=== PATIENT | male | born 1930 | race Caucasian/White ===

== ENCOUNTER 2016-11-09 02:21 | Observation (INO) | payer OTHER, MEDICARE ==
[~2016-11-09] VITALS: Ht 172.7 cm; Wt 76.4 kg
[2016-11-09] VITALS (10 sets, daily range): BP systolic 140–186; BP diastolic 66–87; PULSE 77–110; RESP 20; TEMP 98–98.4; O2SAT 98–100
[~2016-11-09 02:21] MED LIST: AMLO10 PO; ASPI81CH CHEW; CENTCHW4 CHEW; OMEGCAP PO; PRAV40TA2 PO
[2016-11-09] MEDS ORDERED: SODIUM CHLORIDE 0.9% FLUSH 10 ML FLUSH IVF PRN (02:30)
[2016-11-09] MEDS ORDERED: WARF-23 PO (02:32)
[2016-11-09] MEDS ORDERED: NIAC100T2 PO (02:32)
[2016-11-09 02:51] LABS: AUTOMATED NEUTROPHIL # 3.6 TH/MM3 (1.8-7.7); BASOPHIL # 0.1 TH/MM3 (0-0.2); EOSINOPHIL # 0.2 TH/MM3 (0-0.4); EOSINOPHIL % 2.8 % (0.0-4.0); HEMATOCRIT 39.5 % (39.0-51.0); HEMO FLAGS DIFF FINAL; LYMPH % 37.4 % (9.0-44.0); LYMPHOCYTE # 2.8 TH/MM3 (1.0-4.8); MEAN CORPUSCULAR HEMOGLOBIN 29.1 PG (27.0-34.0); MEAN CORPUSCULAR HGB CONC 33.4 % (32.0-36.0); MONO % 10.3 % (0.0-8.0); NEUT % 48.5 % (16.0-70.0); PLATELET COUNT 197 TH/MM3 (150-450); RED BLOOD COUNT 4.54 MIL/MM3 (4.50-5.90); RED CELL DISTRIBUTION WIDTH 14.2 % (11.6-17.2); WHITE BLOOD COUNT 7.4 TH/MM3 (4.0-11.0)
--- NOTE | 2016-11-09 03:00 | RADRPT ---
EXAM DATE/TIME: 11/09/2016 02:28 [place] COMPARISON: CHEST SINGLE AP, March 12, 2016, 9:45. INDICATIONS : Chest pain. MEDICAL HISTORY : Hypertension. Congestive heart failure. Coronary artery disease. SURGICAL HISTORY : CABG. ENCOUNTER: Initial ACUITY: 1 day PAIN SCORE: 4/10 LOCATION: Bilateral chest FINDINGS: No infiltrate, effusion or pneumothorax demonstrated. Heart size stable, within normal limits. Odalis t has had previous median sternotomy. CONCLUSION: No acute cardiopulmonary disease demonstrated. Wang Aleman MD on November 09, 2016 at 2:58 Board Certified Radiologist. This report was verified electronically.
[2016-11-09 03:18] LABS: APTT (PATIENT) 36.2 SEC (24.3-30.1); INTERNATIONAL NORMALIZED RATIO 2.1 RATIO; PROTHROMBIN TIME - PATIENT 23.4 SEC (9.8-11.6)
[2016-11-09 03:25] LABS: CREATINE KINASE 112 U/L (39-308)
[2016-11-09 03:27] LABS: BLOOD UREA NITROGEN 20 MG/DL (7-18); CHLORIDE 104 MEQ/L (98-107); GLOMERULAR FILTRATION RATE 62 ML/MIN (>89); POTASSIUM 3.8 MEQ/L (3.5-5.1); SODIUM (NA) 139 MEQ/L (136-145)
[2016-11-09 03:37] LABS: CKMB 1.4 NG/ML (0.5-3.6)
--- NOTE | 2016-11-09 03:40 | PD ---
HPI Chief Complaint: Chest Pain Time Seen by Provider: 02:30 Travel History International Travel<30 days: No Contact w/Intl Traveler<30days: No Traveled to known affect area: No History of Present Illness HPI 85-year-old male came to the emergency room with history of left-sided chest pain that started at midnight when he woke up to go to the restroom. Patient says he waited for a little bit to make sure that the pain goes away but when it didn't he thought of calling 911. The pain feels like a soreness on the left side of his rib cage. It does not radiate anywhere. Patient does have history of coronary artery disease and had a double vessel bypass about 9 years ago. Not recall his last stress test. His shoe planner is Dr. Kapoor. Vital signs were stable otherwise. He has history of atrial fibrillation and is on Coumadin. PFSH Past Medical History Narrative Medical List of his past medical, surgical, social and family history reviewed from the nursing note. Hx Anticoagulant Therapy: Yes (81MG ASA BID) Arthritis: No Asthma: No Blood Disorders: No Heart Rhythm Problems: No Cancer: No Cardiovascular Problems: Yes (CABG, VALVE REPLACEMENT, 2 BY PASS, CHF) High Cholesterol: Yes Chemotherapy: No Chest Pain: No Congestive Heart Failure: Yes COPD: No Cerebrovascular Accident: No Coronary Artery Disease: Yes Diabetes: No Diminished Hearing: Yes (ADRYAN HEARING AIDS) Endocrine: No GERD: No Genitourinary: No Headaches: Yes Hepatitis: No Hiatal Hernia: No Hypertension: Yes Immune Disorder: No Kidney Stones: No Neurologic: No Psychiatric: No Reproductive: No Respiratory: No Immunizations Current: Yes Migraines: No Myocardial Infarction: No Radiation Therapy: No Renal Failure: No Seizures: No Sleep Apnea: No Thyroid Disease: No Ulcer: No Tetanus Vaccination: < 5 Years Influenza Vaccination: Yes Past Surgical History Abdominal Surgery: No Appendectomy: No Cardiac Surgery: No Cholecystectomy: No Coronary Artery Bypass Graft: Yes (2 VESSEL BYPASS & VALVE REPLACEMENT 2008) Ear Surgery: No Endocrine Surgery: No Eye Surgery: Yes Genitourinary Surgery: No Gynecologic Surgery: No Oral Surgery: No Thoracic Surgery: No Other Surgery: Yes (Cataracts, CABG, 2009, ) Social History Alcohol Use: Yes (OCC) Tobacco Use: No Substance Use: No Allergies-Medications (Allergen,Severity, Reaction): Coded Allergies: No Known Allergies (Verified , 02/14/16) Comments No known drug allergies. Reported Meds & Prescriptions Reported Meds & Active Scripts Active Norvasc (Amlodipine Besylate) 10 Mg Tab 10 Mg PO DAILY 30 Days Reported Niacin 100 Mg Tab Mg PO BID Warfarin 5 Mg Tab 5 Mg PO DAILY Pravastatin 40 Mg Tab 40 Mg PO DAILY [place]-3 Fish Oil/Vitamin (Fish Oil-Cholecalciferol) 1,000-1,000 Mg Cap 340 Cap PO DAILY Centrum (Multiple Vitamins W/ Minerals) 1 Chew 1 Tab CHEW DAILY Aspirin 81 Mg Chew 81 Mg CHEW DAILY Narrative Medication List of his home medications reviewed from the nursing note. Review of Systems Except as stated in HPI: all other systems reviewed are Neg Physical Exam Narrative GENERAL: Awake, alert, elderly, anxious, moderate distress SKIN: Focused skin assessment warm/dry. HEAD: Atraumatic. Normocephalic. EYES: Pupils equal and round. No scleral icterus. No injection or drainage. ENT: No nasal bleeding or discharge. Mucous membranes pink and moist. NECK: Trachea midline. No JVD. CARDIOVASCULAR: Irregularly irregular heart rate. No murmur appreciated. RESPIRATORY: No accessory muscle use. Clear to auscultation. Breath sounds equal bilaterally. GASTROINTESTINAL: Abdomen soft, non-tender, nondistended. Hepatic and splenic margins not palpable. MUSCULOSKELETAL: No obvious deformities. No clubbing. No cyanosis. No edema. NEUROLOGICAL: Awake and alert. No obvious cranial nerve deficits. Motor grossly within normal limits. Normal speech. PSYCHIATRIC: Appropriate mood and affect; insight and judgment normal. Data Data Last Documented VS Vital Signs Date Time Temp Pulse Resp B/P Pulse Ox O2 Delivery O2 Flow Rate FiO2 11/09/16 02:38 110 20 148/71 99 Nasal Cannula 2 143/72 11/09/16 02:24 98.4 Orders Electrocardiogram (11/09/16 02:30) Basic Metabolic Panel (Bmp) (11/09/16 02:30) Ckmb (Isoenzyme) Profile (11/09/16 02:30) Complete Blood Count With Diff (11/09/16 02:30) Magnesium (Mg) (11/09/16 02:30) Prothrombin Time / Inr (Pt) (11/09/16 02:30) Act Partial Throm Time (Ptt) (11/09/16 02:30) Troponin I (11/09/16 02:30) Chest, Single Ap (11/09/16 02:30) Ecg Monitoring (11/09/16 02:30) Bilateral Bp Monitoring (11/09/16 02:30) Iv Access Insert/Monitor (11/09/16 02:30) Oximetry (11/09/16 02:30) Oxygen Administration (11/09/16 02:30) Sodium Chloride 0.9% Flush (Ns Flush) (11/09/16 02:30) CKMB (11/09/16 02:38) CKMB% (11/09/16 02:38) Admit Order (Ed Use Only) (11/09/16 03:35) Place In Observation (11/09/16 03:35) Activity Bed Rest With Brp (11/09/16 03:35) Vital Signs (Adult) Q4H (11/09/16 03:35) Cardiac Rhythm .As Directed (11/09/16 03:35) Notify Dr: Other .PRN (11/09/16 03:35) Notify DrJohanny Parameters (11/09/16 03:35) Resp Oxygen Nasal Cannula (11/09/16 ) Diet Heart Healthy (11/09/16 Breakfast) Ckmb (Isoenzyme) Profile (11/09/16 03:35) Ckmb (Isoenzyme) Profile (11/09/16 06:35) Troponin I (11/09/16 03:35) Troponin I (11/09/16 06:35) Electrocardiogram (11/09/16 06:35) ^ Obtain (11/09/16 03:35) Sodium Chloride 0.9% Flush (Ns Flush) (11/09/16 03:45) Sodium Chloride 0.9% Flush (Ns Flush) (11/09/16 09:00) Acetaminophen (Tylenol) (11/09/16 03:45) Ondansetron Inj (Zofran Inj) (11/09/16 03:45) Nitroglycerin Sl (Nitrostat Sl) (11/09/16 03:45) Packaging Assembler / Telemetry LIN.Q8H (11/09/16 03:35) CKMB (11/09/16 05:48) CKMB% (11/09/16 05:48) CKMB (11/09/16 08:35) CKMB% (11/09/16 08:35) Labs Laboratory Tests Test 11/09/16 02:38 White Blood Count 7.4 TH/MM3 Red Blood Count 4.54 MIL/MM3 Hemoglobin 13.2 GM/DL Hematocrit 39.5 % Mean Corpuscular Volume 87.0 FL Mean Corpuscular Hemoglobin 29.1 PG Mean Corpuscular Hemoglobin 33.4 % Concent Red Cell Distribution Width 14.2 % Platelet Count 197 TH/MM3 Mean Platelet Volume 8.7 FL Neutrophils (%) (Auto) 48.5 % Lymphocytes (%) (Auto) 37.4 % Monocytes (%) (Auto) 10.3 % Eosinophils (%) (Auto) 2.8 % Basophils (%) (Auto) 1.0 % Neutrophils # (Auto) 3.6 TH/MM3 Lymphocytes # (Auto) 2.8 TH/MM3 Monocytes # (Auto) 0.8 TH/MM3 Eosinophils # (Auto) 0.2 TH/MM3 Basophils # (Auto) 0.1 TH/MM3 CBC Comment DIFF FINAL Differential Comment Prothrombin Time 23.4 SEC Prothromb Time International 2.1 RATIO Ratio Activated Partial 36.2 SEC Thromboplast Time Sodium Level 139 MEQ/L Potassium Level 3.8 MEQ/L Chloride Level 104 MEQ/L Carbon Dioxide Level 26.4 MEQ/L Anion Gap 9 MEQ/L Blood Urea Nitrogen 20 MG/DL Creatinine 1.12 MG/DL Estimat Glomerular Filtration 62 ML/MIN Rate Random Glucose 105 MG/DL Calcium Level 9.1 MG/DL Magnesium Level 2.0 MG/DL Total Creatine Kinase 112 U/L Creatine Kinase MB 1.4 NG/ML Troponin I LESS THAN 0.02 NG/ML [facility] Medical Decision Making Medical Screen Exam Complete: Yes Emergency Medical Condition: Yes Medical Record Reviewed: Yes Interpretation(s) Twelve-lead EKG was reviewed by me. Atrial fibrillation, PVCs, normal axis. Heart rate of 109 beats per minute. Differential Diagnosis ACS, non-STEMI, chest wall pain Narrative Course 3:39 AM the test results of back. Coumadin has a therapeutic INR. Patient was given 4 mg of morphine IV along with 4 mg of Zofran. Given his significant past medical history of coronary artery disease and would like to keep him in the chest pain center to be ruled out. Patient understands this and is agreeable. Procedures EKG Prior to Arrival: Yes Diagnosis Primary Impression: Chest pain Qualified Code: R07.9 - Chest pain, unspecified type Additional Impression: Atrial fibrillation Qualified Code: I48.2 - Chronic atrial fibrillation Admitting Information Admitting Physician Requests: Doris Mock MD Nov 09, 2016 03:40
[2016-11-09 03:41] LABS: ANION GAP 9 MEQ/L (5-15); BICARBONATE 26.4 MEQ/L (21.0-32.0)
[2016-11-09] MEDS ORDERED: NITROGLYCERIN 0.4 MG SL 25 TABS/BTL SL PRN (03:45)
[2016-11-09] MEDS ORDERED: ACETAMINOPHEN 500 MG CPLT PO PRN (03:45)
[2016-11-09] MEDS ORDERED: ONDANSETRON HCL 4 MG/2 ML VIAL IV PRN (03:45)
[2016-11-09] MEDS ORDERED: SODIUM CHLORIDE 0.9% FLUSH 10 ML FLUSH IV FLUSH PRN (03:45)
[2016-11-09] MEDS ORDERED: DILTIAZEM HCL 90 MG TAB PO ONE (04:00)
[2016-11-09 06:50] LABS: CREATINE KINASE 117 U/L (39-308)
[2016-11-09 07:02] LABS: CKMB 1.7 NG/ML (0.5-3.6)
[2016-11-09] MEDS ORDERED: ASPIRIN 81 MG CHEW TAB CHEW SCH (09:00)
[2016-11-09] MEDS ORDERED: PRAVASTATIN SOD 40 MG TAB PO SCH (09:00)
[2016-11-09] MEDS ORDERED: SODIUM CHLORIDE 0.9% FLUSH 10 ML FLUSH IV FLUSH SCH (09:00)
[2016-11-09 09:30] LABS: CREATINE KINASE 110 U/L (39-308)
--- NOTE | 2016-11-09 09:40 | HHI.DCPOC ---
Discharge Care Plan Diagnosis: (1) Chest pain, atypical (2) CAD (coronary artery disease) (3) Hx of CABG (4) Atrial fibrillation (5) Hypertension (6) Hyperlipidemia Goals to Promote Your Health * To prevent worsening of your condition and complications * To maintain your health at the optimal level Directions to Meet Your Goals Take your medications as prescribed Follow your dietary instruction Follow activity as directed Keep your appointments as scheduled Take your immunizations and boosters as scheduled If your symptoms worsen call your PCP, if no PCP go to Urgent Care Center or Emergency Room Smoking is Dangerous to Your Health. Avoid second hand smoke Call the 24-hour hour crisis hotline for domestic abuse at Josafat De La Paz Nov 09, 2016 09:40
[2016-11-09 09:43] LABS: CKMB 1.5 NG/ML (0.5-3.6)
--- NOTE | 2016-11-09 09:45 | PD.CARD.PN ---
Subjective Subjective Remarks CARDIOLOGY ATTENDING NOTE S: 85 yo male with hx of CABG x2 by Dr. Arango 9 years ago. Has done well since and remains active. Developed AF now followed by Dr. Kapoor. Getting out of bed to urinate last night he developed sudden severe CP over his left lower ribs. Non radiating, no SOB, diaphoresis or other associated sx. Pain continues to present and very tender to touch. O: HEENT hearing diminished, no JVD or bruits Chest decreased BS but no RWR Exquisitely tender to palpation LL CV Irregular but with no GRM Ext No CCE EKG AF LAB Has Ruled out A: Non cardiac chest wall pain Known CAD AF P: Has RO for ACS but has known CAD which is appropriately followed by Dr. Kapoor. Disch to FU as OP with Dr. Kapoor Objective Vital Signs / I&O Vital Signs Date Time Temp Pulse Resp B/P Pulse Ox O2 Delivery O2 Flow Rate FiO2 11/09/16 09:02 81 11/09/16 08:32 98.0 77 20 140/75 98 11/09/16 07:24 72 16 146/80 99 Nasal Cannula 2 11/09/16 06:17 99 2.00 11/09/16 05:49 80 11/09/16 04:55 92 20 159/66 98 Nasal Cannula 2 11/09/16 04:51 103 Nasal Cannula 2 11/09/16 03:42 104 20 150/87 99 Nasal Cannula 2 11/09/16 02:38 110 20 148/71 99 Nasal Cannula 2 143/72 11/09/16 02:34 99 Nasal Cannula 2 11/09/16 02:34 100 Nasal Cannula 2 11/09/16 02:24 98.4 106 20 186/78 99 Laboratory Laboratory Tests Test 11/09/16 11/09/16 11/09/16 02:38 05:48 08:35 White Blood Count 7.4 TH/MM3 Red Blood Count 4.54 MIL/MM3 Hemoglobin 13.2 GM/DL Hematocrit 39.5 % Mean Corpuscular Volume 87.0 FL Mean Corpuscular Hemoglobin 29.1 PG Mean Corpuscular Hemoglobin 33.4 % Concent Red Cell Distribution Width 14.2 % Platelet Count 197 TH/MM3 Mean Platelet Volume 8.7 FL Neutrophils (%) (Auto) 48.5 % Lymphocytes (%) (Auto) 37.4 % Monocytes (%) (Auto) 10.3 % Eosinophils (%) (Auto) 2.8 % Basophils (%) (Auto) 1.0 % Neutrophils # (Auto) 3.6 TH/MM3 Lymphocytes # (Auto) 2.8 TH/MM3 Monocytes # (Auto) 0.8 TH/MM3 Eosinophils # (Auto) 0.2 TH/MM3 Basophils # (Auto) 0.1 TH/MM3 CBC Comment DIFF FINAL Differential Comment Prothrombin Time 23.4 SEC Prothromb Time International 2.1 RATIO Ratio Activated Partial 36.2 SEC Thromboplast Time Sodium Level 139 MEQ/L Potassium Level 3.8 MEQ/L Chloride Level 104 MEQ/L Carbon Dioxide Level 26.4 MEQ/L Anion Gap 9 MEQ/L Blood Urea Nitrogen 20 MG/DL Creatinine 1.12 MG/DL Estimat Glomerular Filtration 62 ML/MIN Rate Random Glucose 105 MG/DL Calcium Level 9.1 MG/DL Magnesium Level 2.0 MG/DL Total Creatine Kinase 112 U/L 117 U/L 110 U/L Creatine Kinase MB 1.4 NG/ML 1.7 NG/ML Troponin I LESS THAN 0.02 LESS THAN 0.02 LESS THAN 0.02 NG/ML NG/ML NG/ML Gabino Cheung MD Nov 09, 2016 09:45
--- NOTE | 2016-11-09 10:34 | HHI.HP ---
HPI Primary Care Physician [facility] Chief Complaint Chest pain History of Present Illness This is an 85-year-old male with history of CAD with a 2 vessel bypass and mitral valve replacement in 2008 that presents to the ED complaining of a chest discomfort. Patient states he woke up about midnight having use the restroom. When going back to bed and lying down he developed a left-sided sharp pain in the lower left rib area. He states it lasted about 10 or 15 minutes which concerned him. At that point he called 911. When he would stand up when they arrived he noted the discomfort had gone however it is still sore when he pushes on the area. He states he is very active. He walks at least on average 1 mile a day. He also golfs 18 holes on Sundays. He continues to follow-up with his zoology professor. He sees Dr. Kapoor. Last evaluation was October 29. He was recently told by his zoology professor that he is in atrial fibrillation and he was placed on Coumadin. He states that his INR levels have been normal. Denies recent illnesses. Denies fevers or chills. He had no associated shortness breath, nausea, or diaphoresis with his discomfort. Review of Systems General: Patient denies fevers, chills recent, and recent travel HEENT: Patient denies headache, sore throat, difficulty swallowing. Cardiovascular: Has the chest discomfort as mentioned above. Denies sensation of heart beating rapidly or irregularly. No syncope. Denies diaphoresis. Respiratory: Denies shortness of breath or inspirational chest discomfort. Denies coughing wheezing or hemoptysis. GI: Patient denies nausea, vomiting, diarrhea, abdominal pain, bloody stools. Musculoskeletal: Patient denies joint pain or edema. Denies calf pain or edema. Neurovascular: Patient denies numbness, tingling, weakness in extremities. Denies headache. Endocrine: Denies polyuria and polydipsia. Hematologic: Denies easy bruising. Skin: Denies rash or itching. Past Family Social History Allergies: Coded Allergies: No Known Allergies (Verified , 02/14/16) Past Medical History Coronary artery disease with a two-vessel bypass in 2008. Valvular heart disease with mitral valve replacement in 2008. Recently diagnosed with atrial fibrillation placed on Coumadin. Also has history of hypertension and hyperlipidemia. Denies diabetes. Past Surgical History 2 vessel bypass and mitral valve replacement in 2008. Cardiac catheterization with intervention prior to the cardiac surgery. Cataracts. Reported Medications Reported Meds & Active Scripts Active Norvasc (Amlodipine Besylate) 10 Mg Tab 10 Mg PO DAILY 30 Days Reported Niacin 100 Mg Tab Mg PO BID Warfarin 5 Mg Tab 5 Mg PO DAILY Pravastatin 40 Mg Tab 40 Mg PO DAILY [place]-3 Fish Oil/Vitamin (Fish Oil-Cholecalciferol) 1,000-1,000 Mg Cap 340 Cap PO DAILY Centrum (Multiple Vitamins W/ Minerals) 1 Chew 1 Tab CHEW DAILY Aspirin 81 Mg Chew 81 Mg CHEW DAILY Active Ordered Medications Current Medications Medications (Trade) Dose Ordered Sig/Donell Route Start Time Stop Time Status Last Admin (NS Flush) 2 ml UNSCH PRN IVF 11/09/16 02:30 (NS Flush) 2 ml UNSCH PRN IV FLUSH 11/09/16 03:45 (NS Flush) 2 ml BID IV FLUSH 11/09/16 09:00 11/09/16 08:37 (Tylenol) 500 mg Q4H PRN PO 11/09/16 03:45 (Zofran Inj) 4 mg Q6H PRN IV 11/09/16 03:45 (Nitrostat Sl) 0.4 mg Q5M PRN SL 11/09/16 03:45 (Norvasc) 10 mg DAILY PO 11/09/16 09:00 11/09/16 08:37 (Aspirin Chew) 81 mg DAILY CHEW 11/09/16 09:00 11/09/16 08:37 (Pravachol) 40 mg DAILY PO 11/09/16 09:00 11/09/16 08:37 Family History There is family history of CAD. Social History Patient is a nonsmoker. Has occasional alcohol. Denies illicit drugs. Physical Exam Vital Signs Vital Signs Date Time Temp Pulse Resp B/P Pulse Ox O2 Delivery O2 Flow Rate FiO2 11/09/16 09:02 81 11/09/16 08:32 98.0 77 20 140/75 98 11/09/16 07:24 72 16 146/80 99 Nasal Cannula 2 11/09/16 06:17 99 2.00 11/09/16 05:49 80 11/09/16 04:55 92 20 159/66 98 Nasal Cannula 2 11/09/16 04:51 103 Nasal Cannula 2 11/09/16 03:42 104 20 150/87 99 Nasal Cannula 2 11/09/16 02:38 110 20 148/71 99 Nasal Cannula 2 143/72 11/09/16 02:34 99 Nasal Cannula 2 11/09/16 02:34 100 Nasal Cannula 2 11/09/16 02:24 98.4 106 20 186/78 99 Physical Exam GENERAL: This is a well-nourished, well-developed patient, in no apparent distress. Patient speaks in clear complete sentences. Patient is pleasant. HEENT: Head is atraumatic and normocephalic. Neck is supple without lymphadenopathy and trachea is midline. No JVD or carotid bruits. CARDIOVASCULAR: Irregular rate and rhythm without murmur gallop or rub. RESPIRATORY: Clear to auscultation. Breath sounds equal bilaterally. No wheezes , rales, or rhonchi. Chest wall is tender worsening the discomfort that he was having.. No use of accessory muscles. GASTROINTESTINAL: Abdomen is nontender, nondistended. Abdomen soft. No obvious pulsatile mass or bruit. No CVA tenderness. Strong femoral pulses bilaterally. Normal bowel sounds in all quadrants. MUSCULOSKELETAL: Patient is moving upper and lower extremities freely. No calf tenderness or edema, no Homans sign. Strong pulses in upper and lower extremities. NEUROLOGICAL: Patient is alert and oriented. Cranial nerves 2-12 are grossly intact. No focal deficits and speech is clear. SKIN: No rash and turgor is normal. Laboratory Laboratory Tests Test 11/09/16 11/09/16 11/09/16 02:38 05:48 08:35 White Blood Count 7.4 Red Blood Count 4.54 Hemoglobin 13.2 Hematocrit 39.5 Mean Corpuscular Volume 87.0 Mean Corpuscular Hemoglobin 29.1 Mean Corpuscular Hemoglobin 33.4 Concent Red Cell Distribution Width 14.2 Platelet Count 197 Mean Platelet Volume 8.7 Neutrophils (%) (Auto) 48.5 Lymphocytes (%) (Auto) 37.4 Monocytes (%) (Auto) 10.3 Eosinophils (%) (Auto) 2.8 Basophils (%) (Auto) 1.0 Neutrophils # (Auto) 3.6 Lymphocytes # (Auto) 2.8 Monocytes # (Auto) 0.8 Eosinophils # (Auto) 0.2 Basophils # (Auto) 0.1 CBC Comment DIFF FINAL Differential Comment Prothrombin Time 23.4 Prothromb Time International 2.1 Ratio Activated Partial 36.2 Thromboplast Time Sodium Level 139 Potassium Level 3.8 Chloride Level 104 Carbon Dioxide Level 26.4 Anion Gap 9 Blood Urea Nitrogen 20 Creatinine 1.12 Estimat Glomerular Filtration 62 Rate Random Glucose 105 Calcium Level 9.1 Magnesium Level 2.0 Total Creatine Kinase 112 117 110 Creatine Kinase MB 1.4 1.7 1.5 Troponin I LESS THAN 0.02 LESS THAN 0.02 LESS THAN 0.02 Result Diagram: 11/09/1623711/09/16237 Imaging Last 24 hours Impressions Chest X-Ray 11/09/16229 Signed Impressions: Service Date/Time: Wednesday, November 09, 2016 02:28 - CONCLUSION: No acute cardiopulmonary disease demonstrated. Wang Aleman MD Course EKGs have atrial fibrillation. Initial EKG had a rate of 109 second EKG was at rate of 86. No significant ST segment depressions or elevations. Assessment and Plan Assessment and Plan * Atypical chest pain: The discomfort appears to be musculoskeletal in nature. He had serial cardiac enzymes and EKGs for ruling out purposes. He was seen by Dr. Cheung of cardiology in the chest pain center and he will be discharged home with this time with instructions to follow-up with his zoology professor. I attempted to speak with his zoology professor which is Dr. Kapoor however his office staff states he is out of the office today and will try to have one of his associates call me back. * Atrial fibrillation: INR is 2.1. He should continue the warfarin as instructed and continues follow-up with his physician to regulate his Coumadin level. * Hypertension: Continue current medication. * Hyperlipidemia: Continue current medication. * Coronary disease: Patient has history of a two-vessel bypass. He should follow-up with his zoology professor. Patient is stable at this time. He is agreeable to this plan. Josafat De La Paz Nov 09, 2016 10:34
--- NOTE | 2016-11-09 15:24 | EKG ---
Date Performed: 11/09/2016 Time Performed: 05:44:18 PTAGE: 85 years EKG: ATRIAL FIBRILLATION WITH ABERRANT CONDUCTION OR VENTRICULAR PREMATURE COMPLEXES ABNORMAL [facility] [place] ECG RATE HAS SLOWED BUT OTHERWISE NO SIG CHANGE PREVIOUS TRACING : 03/13/2016 06.40 DOCTOR: Gabino Cheung Interpretating Date/Time 11/09/2016 15:23:13
--- NOTE | 2016-11-09 15:27 | EKG ---
Date Performed: 11/09/2016 Time Performed: 02:23:21 PTAGE: 85 years EKG: ATRIAL FIBRILLATION WITH RAPID VENTRICULAR RESPONSE WITH ABERRANT CONDUCTION OR VENTRICULAR PREMATURE COMPLEXES ABNORMAL RHYTHM ECG POSSIBLE NEW AT FIB PREVIOUS TRACING : 03/13/2016 06.40 DOCTOR: Gabino Cheung Interpretating Date/Time 11/09/2016 15:25:51
--- NOTE | 2016-11-09 15:32 | EKG ---
Date Performed: 11/09/2016 Time Performed: 09:13:44 PTAGE: 85 years EKG: ATRIAL FIBRILLATION WITH ABERRANT CONDUCTION OR VENTRICULAR PREMATURE COMPLEXES PROLONGED Q T INTERVAL ABNORMAL ECG NO SIG CHANGE NO PREVIOUS TRACING DOCTOR: Gabino Cheung Interpretating Date/Time 11/09/2016 15:30:48
== END 2016-11-09 11:12 | disposition home or self-care (01) ==
LOC: NEPE 02:21 → NEDA 03:37 → NEPGCP 07:59
PROVIDERS: ADMIT Internal Medicine Cardiovascular Disease; ATTEND Internal Medicine Cardiovascular Disease
DX: I48.91 Unspecified atrial fibrillation (principal); Z79.01 Long term (current) use of anticoagulants; I10 Essential (primary) hypertension; I25.10 Atherosclerotic heart disease of native coronary artery without angina pectoris; Z95.1 Presence of aortocoronary bypass graft; E78.5 Hyperlipidemia, unspecified; E78.00 Pure hypercholesterolemia, unspecified; Z79.899 Other long term (current) drug therapy; Z79.82 Long term (current) use of aspirin
CPT/HCPCS: 71010; 80048; 82550; 82552; 83735; 84484; 85025; 85610; 85730; 93005; 99285; G0378

== ENCOUNTER 2016-11-13 08:18 | Emergency (ER) | payer OTHER, MEDICARE ==
[~2016-11-13] VITALS: Ht 172.7 cm; Wt 74.6 kg
[~2016-11-13 08:18] MED LIST changes: +NIAC100T2 PO; +WARF-23 PO
[2016-11-13 08:19] VITALS: PULSE 116; RESP 19; TEMP 97.9; O2SAT 99
[2016-11-13 08:30] VITALS: BP 140/74
[2016-11-13] MEDS ORDERED: VALT1TAB PO (08:46)
--- NOTE | 2016-11-13 08:46 | PD ---
HPI Chief Complaint: Skin Problem Time Seen by Provider: 08:27 Travel History International Travel<30 days: No Contact w/Intl Traveler<30days: No Traveled to known affect area: No History of Present Illness HPI This 85-year-old male presents with a rash on the left side of her back and chest. He has noticed the rash for about 2-3 days. On November 09 he was admitted to the hospital for evaluation of left-sided chest pain. He has a history of coronary artery disease but this was not thought to be cardiac pain. The rash is painful. PFSH Past Medical History Hx Anticoagulant Therapy: Yes (81MG ASA BID) Arthritis: No Asthma: No Blood Disorders: No Heart Rhythm Problems: Yes (afib newly diag) Cancer: No Cardiovascular Problems: Yes (CABG, VALVE REPLACEMENT, 2 BY PASS, CHF) High Cholesterol: Yes Chemotherapy: No Chest Pain: No Congestive Heart Failure: Yes COPD: No Cerebrovascular Accident: No Coronary Artery Disease: Yes Diabetes: No Diminished Hearing: Yes (ADRYAN HEARING AIDS) Endocrine: No GERD: No Genitourinary: No Headaches: Yes Hepatitis: No Hiatal Hernia: No Hypertension: Yes Immune Disorder: No Kidney Stones: No Neurologic: No Psychiatric: No Reproductive: No Respiratory: No Immunizations Current: Yes Migraines: No Myocardial Infarction: No Radiation Therapy: No Renal Failure: No Seizures: No Sleep Apnea: No Thyroid Disease: No Ulcer: No Influenza Vaccination: Yes Past Surgical History Abdominal Surgery: No Appendectomy: No Cardiac Surgery: Yes Cholecystectomy: No Coronary Artery Bypass Graft: Yes (2 VESSEL BYPASS & VALVE REPLACEMENT 2008) Ear Surgery: No Endocrine Surgery: No Eye Surgery: Yes Genitourinary Surgery: No Gynecologic Surgery: No Oral Surgery: No Thoracic Surgery: No Other Surgery: Yes (Cataracts, CABG, 2008) Family History Family Myocardial Infarction: Yes Social History Alcohol Use: Yes (OCC) Tobacco Use: No Substance Use: No Allergies-Medications (Allergen,Severity, Reaction): Coded Allergies: No Known Allergies (Verified , 11/13/16) Reported Meds & Prescriptions Reported Meds & Active Scripts Active Norvasc (Amlodipine Besylate) 10 Mg Tab 10 Mg PO DAILY 30 Days Reported Niacin 100 Mg Tab Mg PO BID Warfarin 5 Mg Tab 5 Mg PO DAILY Pravastatin 40 Mg Tab 40 Mg PO DAILY [place]-3 Fish Oil/Vitamin (Fish Oil-Cholecalciferol) 1,000-1,000 Mg Cap 340 Cap PO DAILY Centrum (Multiple Vitamins W/ Minerals) 1 Chew 1 Tab CHEW DAILY Aspirin 81 Mg Chew 81 Mg CHEW DAILY Review of Systems General / Constitutional: No: Fever, Chills Eyes: No: Diploplia, Blurred Vision HENT: No: Headaches, Vertigo Cardiovascular: Positive: Chest Pain or Discomfort Respiratory: No: Cough, Shortness of Breath Gastrointestinal: No: Nausea, Vomiting Musculoskeletal: No: Myalgias, Arthralgias Skin: Positive Rash Neurologic: No: Focal Abnormalities Psychiatric: No: Anxiety Physical Exam Narrative GENERAL well-developed male SKIN: Focused skin assessment warm/dry. There is a rash involving the lower chest/upper abdomen in a dermatomal distribution on the left side. It is an erythematous rash with just a few vesicles. HEAD: Atraumatic. Normocephalic. EYES: Pupils equal and round. No scleral icterus. No injection or drainage. ENT: No nasal bleeding or discharge. Mucous membranes pink and moist. NECK: Trachea midline. No JVD. CARDIOVASCULAR: Irregular rate and rhythm. No murmur appreciated. RESPIRATORY: No accessory muscle use. Clear to auscultation. Breath sounds equal bilaterally. GASTROINTESTINAL: Abdomen soft, non-tender, nondistended. Hepatic and splenic margins not palpable. MUSCULOSKELETAL: No obvious deformities. No clubbing. No cyanosis. No edema. NEUROLOGICAL: Awake and alert. No obvious cranial nerve deficits. Motor grossly within normal limits. Normal speech. PSYCHIATRIC: Appropriate mood and affect; insight and judgment normal. Data Data Last Documented VS Vital Signs Date Time Temp Pulse Resp B/P Pulse Ox O2 Delivery O2 Flow Rate FiO2 11/13/16 08:30 140/74 11/13/16 08:19 97.9 116 19 99 [facility] Medical Decision Making Medical Screen Exam Complete: Yes Emergency Medical Condition: Yes Medical Record Reviewed: Yes Differential Diagnosis Differential includes shingles Narrative Course This rash is consistent with shingles and is most likely the cause of the pain in the abdomen and the chest pain center the other day. He'll be placed on Valtrex Diagnosis Primary Impression: Shingles Qualified Code: B02.9 - Herpes zoster without complication Scripts Valacyclovir (Valtrex)1 Gm Tab1,000 Mg PO BID #14 TAB Ref 0 Prov:Jose Conn MD 11/13/16 Disposition: 01 DISCHARGE HOME Condition: Stable Jose Conn MD Nov 13, 2016 08:46
== END 2016-11-13 08:55 | disposition home or self-care (01) ==
LOC: PHED 08:18
DX: B02.9 Zoster without complications (principal); I10 Essential (primary) hypertension; E78.00 Pure hypercholesterolemia, unspecified; H91.93 Unspecified hearing loss, bilateral; Z79.82 Long term (current) use of aspirin; Z86.79 Personal history of other diseases of the circulatory system
CPT/HCPCS: 99283

== ENCOUNTER 2017-08-04 15:28 | Emergency (ER) | payer OTHER, MEDICARE ==
[~2017-08-04] VITALS: Ht 172.7 cm; Wt 78.1 kg
[~2017-08-04 15:28] MED LIST changes: +ASPI-516 CHEW; -ASPI81CH CHEW; +VALT1TAB PO
[2017-08-04 15:35] VITALS: BP 161/96; PULSE 130; RESP 18; TEMP 97.5; O2SAT 99
[2017-08-04 15:47] VITALS: O2SAT 97
--- NOTE | 2017-08-04 15:53 | PD ---
HPI Chief Complaint: Pain: Acute or Chronic Time Seen by Provider: 15:42 Travel History International Travel<30 days: No Contact w/Intl Traveler<30days: No Traveled to known affect area: No History of Present Illness HPI 86-year-old male complains of about 1 week of low back pain on the right side. It started after he was working in his yard. Pain is much worse today. Overnight he had to sleep in his chair due to the pain. Pain radiates down the right leg. It's worse with palpation. No falls. No injury. PFSH Past Medical History Hx Anticoagulant Therapy: Yes (WARFARIN) Arthritis: No Asthma: No Atrial Fibrillation: Yes Blood Disorders: No Heart Rhythm Problems: Yes (afib) Cancer: No Cardiovascular Problems: Yes High Cholesterol: Yes Chemotherapy: No Chest Pain: No Congestive Heart Failure: Yes COPD: No Cerebrovascular Accident: No Coronary Artery Disease: Yes Diabetes: No Diminished Hearing: Yes (ADRYAN HEARING AIDS) Endocrine: No GERD: No Genitourinary: No Headaches: Yes Hepatitis: No Hiatal Hernia: No Hypertension: Yes Immune Disorder: No Kidney Stones: No Neurologic: No Psychiatric: No Reproductive: No Respiratory: No Immunizations Current: Yes Migraines: No Myocardial Infarction: No Radiation Therapy: No Renal Failure: No Seizures: No Sleep Apnea: No Thyroid Disease: No Ulcer: No Tetanus Vaccination: < 5 Years Past Surgical History Abdominal Surgery: No Appendectomy: No Cardiac Surgery: Yes Cholecystectomy: No Coronary Artery Bypass Graft: Yes (2 VESSEL BYPASS & VALVE REPLACEMENT 2008) Ear Surgery: No Endocrine Surgery: No Eye Surgery: Yes Genitourinary Surgery: No Gynecologic Surgery: No Oral Surgery: No Thoracic Surgery: No Other Surgery: Yes (Cataracts, CABG, 2008) Family History Family Myocardial Infarction: Yes Social History Alcohol Use: Yes (OCC) Tobacco Use: No Substance Use: No Allergies-Medications (Allergen,Severity, Reaction): Coded Allergies: No Known Allergies (Verified Adverse Reaction, Unknown, 08/04/17) Reported Meds & Prescriptions Reported Meds & Active Scripts Active Tramadol (Tramadol HCl) 50 Mg Tab 100 Mg PO Q6H PRN Norvasc (Amlodipine Besylate) 10 Mg Tab 10 Mg PO DAILY 30 Days Reported Warfarin 7.5 Mg Tab 7.5 Mg PO , Warfarin 5 Mg Tab 5 Mg PO SUN,MO,WED,FRI,SAT Pravastatin 40 Mg Tab 40 Mg PO DAILY [place]-3 Fish Oil/Vitamin (Fish Oil-Cholecalciferol) 1,000-1,000 Mg Cap 340 Cap PO DAILY Centrum (Multiple Vitamins W/ Minerals) 1 Chew 1 Tab CHEW DAILY Aspirin 81 Mg Chew 81 Mg CHEW DAILY Review of Systems Except as stated in HPI: all other systems reviewed are Neg General / Constitutional: No: Fever Physical Exam Narrative GENERAL: 86-year-old male well-nourished well-developed Vital Signs Date Time Temp Pulse Resp B/P (MAP) Pulse Ox O2 Delivery O2 Flow Rate FiO2 08/04/17 15:35 97.5 130 18 161/96 (117) 99 SKIN: Warm and dry. HEAD: Atraumatic. Normocephalic. EYES: Pupils equal and round. No scleral icterus. No injection or drainage. ENT: No nasal bleeding or discharge. Mucous membranes pink and moist. NECK: Trachea midline. No JVD. CARDIOVASCULAR: Tachycardia. Irregular. RESPIRATORY: No accessory muscle use. Clear to auscultation. Breath sounds equal bilaterally. GASTROINTESTINAL: Soft. Significant tenderness to palpation in the right flank. MUSCULOSKELETAL: Extremities without clubbing, cyanosis, or edema. No obvious deformities. NEUROLOGICAL: Awake and alert. No obvious cranial nerve deficits. Motor grossly within normal limits. Five out of 5 muscle strength in the arms and legs. Normal speech. PSYCHIATRIC: Appropriate mood and affect; insight and judgment normal. Data Data Last Documented VS Vital Signs Date Time Temp Pulse Resp B/P (MAP) Pulse Ox O2 Delivery O2 Flow Rate FiO2 08/04/17 17:30 08/04/17 17:12 103 20 98 Room Air 08/04/17 15:35 97.5 Orders Orders Complete Blood Count With Diff (08/04/17 16:03) Comprehensive Metabolic Panel (08/04/17 16:03) Lipase (08/04/17 16:03) Urinalysis - C+S If Indicated (08/04/17 16:03) Ct Abd/Pel W/O Iv Contrast (08/04/17 16:03) Iv Access Insert/Monitor (08/04/17 16:03) Ecg Monitoring (08/04/17 16:03) Oximetry (08/04/17 16:03) Morphine Inj (Morphine Inj) (08/04/17 16:15) Ondansetron Inj (Zofran Inj) (08/04/17 16:15) Sodium Chloride 0.9% Flush (Ns Flush) (08/04/17 16:15) Electrocardiogram (08/04/17 16:03) Ed Discharge Order (08/04/17 17:12) Labs Laboratory Tests Test 08/04/17 16:10 08/04/17 17:10 White Blood Count 9.6 TH/MM3 Red Blood Count 4.58 MIL/MM3 Hemoglobin 13.2 GM/DL Hematocrit 40.1 % Mean Corpuscular Volume 87.6 FL Mean Corpuscular Hemoglobin 28.8 PG Mean Corpuscular Hemoglobin Concent 32.8 % Red Cell Distribution Width 13.0 % Platelet Count 223 TH/MM3 Mean Platelet Volume 8.6 FL Neutrophils (%) (Auto) 67.5 % Lymphocytes (%) (Auto) 19.0 % Monocytes (%) (Auto) 10.2 % Eosinophils (%) (Auto) 0.5 % Basophils (%) (Auto) 2.8 % Neutrophils # (Auto) 6.5 TH/MM3 Lymphocytes # (Auto) 1.8 TH/MM3 Monocytes # (Auto) 1.0 TH/MM3 Eosinophils # (Auto) 0.0 TH/MM3 Basophils # (Auto) 0.3 TH/MM3 CBC Comment DIFF FINAL Differential Comment Blood Urea Nitrogen 19 MG/DL Creatinine 1.10 MG/DL Random Glucose 102 MG/DL Total Protein 8.3 GM/DL Albumin 3.8 GM/DL Calcium Level 9.3 MG/DL Alkaline Phosphatase 91 U/L Aspartate Amino Transf (AST/SGOT) 35 U/L Alanine Aminotransferase (ALT/SGPT) 34 U/L Total Bilirubin 0.8 MG/DL Sodium Level 134 MEQ/L Potassium Level 4.6 MEQ/L Chloride Level 100 MEQ/L Carbon Dioxide Level 25.7 MEQ/L Anion Gap 8 MEQ/L Estimat Glomerular Filtration Rate 64 ML/MIN Lipase 147 U/L Urine Color YELLOW Urine Turbidity CLEAR Urine pH 6.0 Urine Specific [place] LESS/EQUAL 1.005 Urine Protein NEG mg/dL Urine Glucose (UA) NEG mg/dL Urine Ketones 15 mg/dL Urine Occult Blood TRACE Urine Nitrite NEG Urine Bilirubin NEG Urine Urobilinogen 0.2 MG/DL Urine Leukocyte Esterase SMALL Urine WBC 3-5 /hpf Urine Squamous Epithelial Cells 0-5 /hpf Microscopic Urinalysis Comment CULT NOT INDICATED MDM Medical Decision Making Medical Screen Exam Complete: Yes Emergency Medical Condition: Yes Medical Record Reviewed: Yes Differential Diagnosis Kidney stone, aneurysm, sciatica, myofascial strain Narrative Course CBC & BMP Diagram 08/04/17 16:10 Total Protein 8.3 H, Albumin 3.8, Calcium Level 9.3, Alkaline Phosphatase 91, Aspartate Amino Transf (AST/SGOT) 35, Alanine Aminotransferase (ALT/SGPT) 34, Total Bilirubin 0.8 Lipase 147 We discussed the presence of the right kidney mass and patient agrees to follow up with PMD for further diagnostic evaluation. The patient is resting comfortably and feels better, is alert and in no distress. The patients results and examination findings were discussed. The repeat examination is unremarkable and benign. The history, exam, diagnostic testing, and current condition do not suggest any significant pathology to warrant further testing, continued ED treatment, admission, or surgical evaluation at this point. The vital signs have been stable. The patient does not have uncontrollable pain, intractable vomiting, or other significant symptoms. The patient's condition is stable and appropriate for discharge. The patient will pursue further outpatient evaluation with a primary care physician or other designated or consulting physician as indicated in the discharge instructions. The patient expressed understanding and was agreeable with this plan. Diagnosis Primary Impression: Low back pain Qualified Codes: M54.41 - Lumbago with sciatica, right side Additional Impression: Right kidney mass Referrals: Primary Care Physician 2 days Right kidney mass - evaluation Med/Other Pt SpecificInfo: Prescription(s) given Scripts Tramadol (Tramadol) 50 Mg Tab 100 MG PO Q6H Y for PAIN SCALE 6 TO 10, #15 TAB 0 Refills Prov: Farhat Way MD 08/04/17 Disposition: 01 DISCHARGE HOME Condition: Stable Farhat Way MD Aug 04, 2017 15:53
[2017-08-04] MEDS ORDERED: WARF-21 PO (15:55)
[2017-08-04] MEDS ORDERED: SODIUM CHLORIDE 0.9% FLUSH 10 ML FLUSH IV FLUSH PRN (16:15)
[2017-08-04] MEDS ORDERED: MORPHINE SULFATE 4 MG/ML INJ IV PUSH ONE (16:15)
[2017-08-04] MEDS ORDERED: ONDANSETRON HCL 4 MG/2 ML VIAL IVP ONE (16:15)
[2017-08-04 16:32] LABS: AUTOMATED NEUTROPHIL # 6.5 TH/MM3 (1.8-7.7); BASOPHIL # 0.3 TH/MM3 (0-0.2); BASOPHIL % 2.8 % (0.0-2.0); EOSINOPHIL % 0.5 % (0.0-4.0); HEMATOCRIT 40.1 % (39.0-51.0); HEMOGLOBIN 13.2 GM/DL (13.0-17.0); LYMPHOCYTE # 1.8 TH/MM3 (1.0-4.8); MEAN CELL VOLUME 87.6 FL (80.0-100.0); MEAN CORPUSCULAR HEMOGLOBIN 28.8 PG (27.0-34.0); MEAN CORPUSCULAR HGB CONC 32.8 % (32.0-36.0); MEAN PLATELET VOLUME 8.6 FL (7.0-11.0); MONO % 10.2 % (0.0-8.0); NEUT % 67.5 % (16.0-70.0); PLATELET COUNT 223 TH/MM3 (150-450); RED BLOOD COUNT 4.58 MIL/MM3 (4.50-5.90); WHITE BLOOD COUNT 9.6 TH/MM3 (4.0-11.0)
[2017-08-04 16:43] LABS: CHLORIDE 100 MEQ/L (98-107); SODIUM (NA) 134 MEQ/L (136-145)
--- NOTE | 2017-08-04 16:43 | RADRPT ---
EXAM DATE/TIME: 08/04/2017 16:13 [place] COMPARISON: CT BRAIN W/O CONTRAST, March 12, 2016, 10:24. INDICATIONS : Right low back pain x 1 week. ORAL CONTRAST: No oral contrast ingested. RADIATION DOSE: 9.65 CTDIvol (mGy) MEDICAL HISTORY : Congestive heart failure. Hypertension. SURGICAL HISTORY : CABG ENCOUNTER: Initial ACUITY: 1 week PAIN SCALE: 10/10 LOCATION: Right low back TECHNIQUE: Volumetric scanning of the abdomen and pelvis was performed. Using automated exposure control and ad justment of the mA and/or kV according to patient size, radiation dose was kept as low as reasonably achievable to obtain optimal diagnostic quality images. DICOM format image data is available electro nically for review and comparison. FINDINGS: The limited portion of lung bases visualized is clear. Right kidney/ureter: The right kidney is normal in size. The right ureter is followed throughout its course and is unremar kable in appearance. Left kidney/ureter: The the left kidney is normal in size. No stones are seen. The left ureter is followed throughout its course and is unremarkable in appearance. The examination does demonstrate a 1.5 x 1.1 cm nodule pro jecting off the posterior aspect of the left kidney. This is incompletely assessed on this noncontras t examination. Either followup ultrasound or plus contrast imaging could be performed for more defini tive assessment. The visualized portion of liver, spleen, the pancreas and adrenal glands are intact. There is a 2 cm stone in the dependent portion the gallbladder. The abdominal aorta is normal in caliber. There is no retroperitoneal lymphadenopathy. There is no fr ee fluid seen within the abdomen. No free air seen. There is no free fluid within the pelvis. There are scattered diverticuli throughout the sigmoid colo n. Note is made of a right inguinal hernia. The prostate is enlarged measuring 4.1 x 6.0 cm. There are degenerative changes throughout the lumbar spine. CONCLUSION: 1. No renal stones identified. 2. Degenerative changes throughout the lumbar spine. 3. 1.4 x 1.1 cm well-circumscribed exophytic lesion projecting off the left kidney. It is possible th is represents a simple cyst however it is incompletely characterized. 4. 2 cm calcified stone within the dependent portion of the gallbladder. 5. Enlargement of the prostate. 6. Small right inguinal hernia. Farhat Henning MD on August 04, 2017 at 16:27 Board Certified Radiologist. This report was verified electronically.
[2017-08-04 16:48] LABS: ALBUMIN 3.8 GM/DL (3.4-5.0); BICARBONATE 25.7 MEQ/L (21.0-32.0); CALCIUM 9.3 MG/DL (8.5-10.1); GLUCOSE,RANDOM 102 MG/DL (74-106)
[2017-08-04 16:49] LABS: BLOOD UREA NITROGEN 19 MG/DL (7-18)
[2017-08-04 16:51] LABS: ALT (GPT) 34 U/L (12-78); AST (GOT) 35 U/L (15-37); GLOMERULAR FILTRATION RATE 64 ML/MIN (>89)
[2017-08-04 16:53] LABS: TOTAL BILIRUBIN ADULT 0.8 MG/DL (0.2-1.0); TOTAL PROTEIN 8.3 GM/DL (6.4-8.2)
[2017-08-04 16:54] LABS: ALKALINE PHOSPHATASE 91 U/L (45-117)
[2017-08-04] MEDS ORDERED: TRAM50TA PO (17:11)
[2017-08-04 17:12] VITALS: BP 156/89; PULSE 103; RESP 20; O2SAT 98
[2017-08-04 17:34] LABS: BILIRUBIN, URINE NEG (NEG); BLOOD, URINE TRACE (NEG); GLUCOSE,URINE NEG (NEG); KETONE, URINE 15 mg/dL (NEG); NITRITE,URINE NEG (NEG); URINE COLOR YELLOW (YELLW/STRAW); URINE LEUKOCYTE ESTERASE SMALL (NEG)
[2017-08-04 17:59] LABS: SQUAMOUS EPITHELIAL CELL URINE 0-5 /hpf (0-5)
--- NOTE | 2017-08-05 05:42 | EKG ---
Date Performed: 08/04/2017 Time Performed: 16:37:43 PTAGE: 86 years EKG: ATRIAL FIBRILLATION WITH RAPID VENTRICULAR RESPONSE ABNORMAL RHYTHM ECG PREVIOUS TRACING : 11/09/2016 09.13 No significant change from previous tracing noted. DOCTOR: Jerod Corbett Interpretating Date/Time 08/05/2017 05:41:30
== END 2017-08-04 17:32 | disposition home or self-care (01) ==
LOC: PHED 15:28
DX: M54.41 Lumbago with sciatica, right side (principal); N28.89 Other specified disorders of kidney and ureter; K80.20 Calculus of gallbladder without cholecystitis without obstruction; I48.91 Unspecified atrial fibrillation; I11.0 Hypertensive heart disease with heart failure; I50.9 Heart failure, unspecified; I25.10 Atherosclerotic heart disease of native coronary artery without angina pectoris; E78.00 Pure hypercholesterolemia, unspecified; Z95.2 Presence of prosthetic heart valve; Z95.1 Presence of aortocoronary bypass graft; Z79.01 Long term (current) use of anticoagulants; Z79.899 Other long term (current) drug therapy
CPT/HCPCS: 74176; 80053; 81001; 83690; 85025; 93005; 96374; 96375; 99284; J2270; J2405

== ENCOUNTER 2017-08-28 14:15 | Emergency (ER) | payer MEDICARE, OTHER ==
[~2017-08-28] VITALS: Ht 172.7 cm; Wt 77.4 kg
[~2017-08-28 14:15] MED LIST changes: -NIAC100T2 PO; +TRAM50TA PO; -VALT1TAB PO; +WARF-21 PO
[2017-08-28 14:24] VITALS: BP 115/83; PULSE 110; RESP 16; TEMP 96.9; O2SAT 97
--- NOTE | 2017-08-28 14:49 | PD ---
HPI Chief Complaint: Nosebleed Time Seen by Provider: 14:48 Travel History International Travel<30 days: No Contact w/Intl Traveler<30days: No Traveled to known affect area: No History of Present Illness HPI The patient's 86 and arrives to the ER with bleeding from the left nose. It is not epistaxis. The patient is bleeding from skin outside of the nose. He has been holding pressure with a towel for about 45 minutes and the bleeding has continued. He takes Coumadin For atrial fibrillation. He has been compliant with it. He does not know what his last INR was. PFSH Past Medical History Hx Anticoagulant Therapy: Yes (on coumadin ) Arthritis: No Asthma: No Atrial Fibrillation: Yes Blood Disorders: No Heart Rhythm Problems: Yes (afib) Cancer: No Cardiovascular Problems: Yes (htn on meds, heart valve, bypass x 2) High Cholesterol: Yes Chemotherapy: No Chest Pain: No Congestive Heart Failure: Yes COPD: No Cerebrovascular Accident: No Coronary Artery Disease: Yes Diabetes: No Diminished Hearing: Yes (ADRYAN HEARING AIDS) Endocrine: No GERD: No Genitourinary: No Headaches: Yes Hepatitis: No Hiatal Hernia: No Hypertension: Yes Immune Disorder: No Kidney Stones: No Neurologic: No Psychiatric: No Reproductive: No Respiratory: No Immunizations Current: Yes Migraines: No Myocardial Infarction: No Radiation Therapy: No Renal Failure: No Seizures: No Sleep Apnea: No Thyroid Disease: No Ulcer: No Past Surgical History Abdominal Surgery: No Appendectomy: No Cardiac Surgery: Yes Cholecystectomy: No Coronary Artery Bypass Graft: Yes (2 VESSEL BYPASS & VALVE REPLACEMENT 2008) Ear Surgery: No Endocrine Surgery: No Eye Surgery: Yes Genitourinary Surgery: No Gynecologic Surgery: No Oral Surgery: No Thoracic Surgery: No Other Surgery: Yes (Cataracts, CABG, 2008) Social History Alcohol Use: Yes (OCC) Tobacco Use: No Substance Use: No Allergies-Medications (Allergen,Severity, Reaction): Coded Allergies: No Known Allergies (Verified Adverse Reaction, Unknown, 08/28/17) Reported Meds & Prescriptions Reported Meds & Active Scripts Active Norvasc (Amlodipine Besylate) 10 Mg Tab 10 Mg PO DAILY 30 Days Reported Warfarin 5 Mg Tab 5 Mg PO DAILY Pravastatin 40 Mg Tab 40 Mg PO DAILY [place]-3 Fish Oil/Vitamin (Fish Oil-Cholecalciferol) 1,000-1,000 Mg Cap 340 Cap PO DAILY Centrum (Multiple Vitamins W/ Minerals) 1 Chew 1 Tab CHEW DAILY Aspirin 81 Mg Chew 81 Mg CHEW DAILY Review of Systems Except as stated in HPI: all other systems reviewed are Neg General / Constitutional: No: Fever Physical Exam Narrative GENERAL: 86-year-old male well-nourished well-developed no acute distress Vital Signs Date Time Temp Pulse Resp B/P (MAP) Pulse Ox O2 Delivery O2 Flow Rate FiO2 08/28/17 14:24 96.9 110 16 115/83 (94) 97 SKIN: Warm and dry. There is a 1 mm focus of bleeding about the outside of the left nose with fairly brisk fairly continuous bleeding. HEAD: Atraumatic. Normocephalic. EYES: Pupils equal and round. No scleral icterus. No injection or drainage. ENT: No nasal bleeding or discharge. Mucous membranes pink and moist. NECK: Trachea midline. No JVD. CARDIOVASCULAR: Regular rate and rhythm. RESPIRATORY: No accessory muscle use. Clear to auscultation. Breath sounds equal bilaterally. GASTROINTESTINAL: Abdomen soft, non-tender, nondistended. Hepatic and splenic margins not palpable. MUSCULOSKELETAL: Extremities without clubbing, cyanosis, or edema. No obvious deformities. NEUROLOGICAL: Awake and alert. No obvious cranial nerve deficits. Motor grossly within normal limits. Five out of 5 muscle strength in the arms and legs. Normal speech. PSYCHIATRIC: Appropriate mood and affect; insight and judgment normal. Data Data Last Documented VS Vital Signs Date Time Temp Pulse Resp B/P (MAP) Pulse Ox O2 Delivery O2 Flow Rate FiO2 08/28/17 15:34 96 22 157/97 (117) 100 Room Air 08/28/17 14:24 96.9 Orders Orders Basic Metabolic Panel (Bmp) (08/28/17 14:49) Complete Blood Count With Diff (08/28/17 14:49) Prothrombin Time / Inr (Pt) (08/28/17 14:49) Act Partial Throm Time (Ptt) (08/28/17 14:49) Ecg Monitoring (08/28/17 14:49) Iv Access Insert/Monitor (08/28/17 14:49) Oximetry (08/28/17 14:49) Sodium Chloride 0.9% Flush (Ns Flush) (08/28/17 15:00) Gelatin 12 Mm/7 Mm Top (Gelfoam 12 Mm/7 (08/28/17 15:00) Labs Laboratory Tests Test 08/28/17 15:15 White Blood Count 9.1 TH/MM3 Red Blood Count 4.79 MIL/MM3 Hemoglobin 13.6 GM/DL Hematocrit 41.8 % Mean Corpuscular Volume 87.2 FL Mean Corpuscular Hemoglobin 28.5 PG Mean Corpuscular Hemoglobin Concent 32.7 % Red Cell Distribution Width 12.5 % Platelet Count 267 TH/MM3 Mean Platelet Volume 7.9 FL Neutrophils (%) (Auto) 78.0 % Lymphocytes (%) (Auto) 13.4 % Monocytes (%) (Auto) 5.1 % Eosinophils (%) (Auto) 0.4 % Basophils (%) (Auto) 3.1 % Neutrophils # (Auto) 7.1 TH/MM3 Lymphocytes # (Auto) 1.2 TH/MM3 Monocytes # (Auto) 0.5 TH/MM3 Eosinophils # (Auto) 0.0 TH/MM3 Basophils # (Auto) 0.3 TH/MM3 CBC Comment DIFF FINAL Differential Comment Prothrombin Time 24.3 SEC Prothromb Time International Ratio 2.4 RATIO Activated Partial Thromboplast Time 38.0 SEC Blood Urea Nitrogen 26 MG/DL Creatinine 0.95 MG/DL Random Glucose 113 MG/DL Calcium Level 9.4 MG/DL Sodium Level 130 MEQ/L Potassium Level 4.9 MEQ/L Chloride Level 101 MEQ/L Carbon Dioxide Level 22.3 MEQ/L Anion Gap 7 MEQ/L Estimat Glomerular Filtration Rate 75 ML/MIN MDM Medical Decision Making Medical Screen Exam Complete: Yes Emergency Medical Condition: Yes Medical Record Reviewed: Yes Differential Diagnosis Anemia, skin tear, suprapubic INR Narrative Course 6-0 Ethilon was placed in the left nose in a hiwdaf-[id number] style which effectively stopped the bleeding. Previously and attempt to stop bleeding with Surgicel Gelfoam with pressure failed. Patient is ready for discharge with essentially unremarkable blood work and an INR of 2.4. He has been resting here for about 45 minutes since the hzdars-[id number] suture was placed. Procedures Procedure Narrative LACERATION LOCATION: Nose and the left side] LENGTH: 1mm NUMBER OF STITCHES/RENO: 1 REPAIR: The area of the laceration was prepped with Betadine and sterilely draped. The laceration was infiltrated with lidocaine with epinephrine. The wound was copiously irrigated and explored without evidence of foreign body, tendon injury or neurovascular injury. The wound was closed using 6-0 Ethilon. This was a figure of eight suture repair. A sterile dressing was applied. The patient was advised to keep the dressing clean and dry. Patient tolerated the procedure well. Diagnosis Primary Impression: Bleeding Referrals: RETURN IN 5 DAYS FOR SUTURE REMOVAL Pharmacy Technician call for appointment Med/Other Pt SpecificInfo: No Change to Meds Disposition: 01 DISCHARGE HOME Condition: Stable Farhat Way MD Aug 28, 2017 14:49
[2017-08-28] MEDS ORDERED: GELATIN 12 MM/7 MM FOAM TOPICAL ONE (15:00)
[2017-08-28] MEDS ORDERED: SODIUM CHLORIDE 0.9% FLUSH 10 ML FLUSH IVF PRN (15:00)
[2017-08-28 15:24] LABS: AUTOMATED NEUTROPHIL # 7.1 TH/MM3 (1.8-7.7); BASOPHIL # 0.3 TH/MM3 (0-0.2); BASOPHIL % 3.1 % (0.0-2.0); EOSINOPHIL % 0.4 % (0.0-4.0); HEMATOCRIT 41.8 % (39.0-51.0); HEMOGLOBIN 13.6 GM/DL (13.0-17.0); LYMPH % 13.4 % (9.0-44.0); LYMPHOCYTE # 1.2 TH/MM3 (1.0-4.8); MEAN CELL VOLUME 87.2 FL (80.0-100.0); MEAN CORPUSCULAR HEMOGLOBIN 28.5 PG (27.0-34.0); MEAN CORPUSCULAR HGB CONC 32.7 % (32.0-36.0); MEAN PLATELET VOLUME 7.9 FL (7.0-11.0); MONO % 5.1 % (0.0-8.0); MONOCYTE # 0.5 TH/MM3 (0-0.9); PLATELET COUNT 267 TH/MM3 (150-450); RED BLOOD COUNT 4.79 MIL/MM3 (4.50-5.90); RED CELL DISTRIBUTION WIDTH 12.5 % (11.6-17.2); WHITE BLOOD COUNT 9.1 TH/MM3 (4.0-11.0)
[2017-08-28 15:34] VITALS: BP 157/97; PULSE 96; RESP 22; O2SAT 100
[2017-08-28 15:40] LABS: BICARBONATE 22.3 MEQ/L (21.0-32.0); CALCIUM 9.4 MG/DL (8.5-10.1)
[2017-08-28 15:41] LABS: INTERNATIONAL NORMALIZED RATIO 2.4 RATIO; PROTHROMBIN TIME - PATIENT 24.3 SEC (9.8-11.6)
[2017-08-28 15:44] LABS: CREATININE 0.95 MG/DL (0.60-1.30)
== END 2017-08-28 16:21 | disposition home or self-care (01) ==
LOC: PHED 14:15 → PHEFT 16:21
DX: S01.21XA Laceration without foreign body of nose, initial encounter (principal); I48.91 Unspecified atrial fibrillation; I11.0 Hypertensive heart disease with heart failure; I50.9 Heart failure, unspecified; E78.00 Pure hypercholesterolemia, unspecified; I25.10 Atherosclerotic heart disease of native coronary artery without angina pectoris; X58.XXXA Exposure to other specified factors, initial encounter; Z79.01 Long term (current) use of anticoagulants; Z79.82 Long term (current) use of aspirin
CPT/HCPCS: 12011; 80048; 85025; 85610; 85730